=== PATIENT | female | born 2000 | race African-American/Black ===

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

== ENCOUNTER → 2018-05-19 | Outpatient (CLI) | payer BC | END | disposition home or self-care (01) | LOC: C.LABSPEC 15:44 | PROVIDERS: ATTEND Family Medicine | DX: R11.0 Nausea (principal) ==